=== PATIENT | female | born 1935 | race Caucasian/White ===

== ENCOUNTER → 2017-12-23 | Outpatient (CLI) | payer MEDICARE ==
[~2017-12-23] MED LIST: BETA0.0554 TOPICAL; DIGO0.12 PO; LEVO75TA3 PO; METO50TA PO; RANI150T PO; ROSU1TAB6 PO; TAZT300C PO
== END ==
LOC: OLAB 07:57
PROVIDERS: ATTEND Family Medicine
DX: N03.9 Chronic nephritic syndrome with unspecified morphologic changes (principal)

== ENCOUNTER → 2018-04-05 | Outpatient (CLI) | payer MEDICARE ==
[2018-04-05 14:14] LABS: ALBUMIN 3.5 GM/DL (3.4-5.0); AST (GOT) 19 U/L (15-37); BLOOD UREA NITROGEN 13 MG/DL (7-18); CALCIUM 9.3 MG/DL (8.5-10.1); CHLORIDE 105 MEQ/L (98-107); CREATININE 1.24 MG/DL (0.50-1.00); GLOMERULAR FILTRATION RATE 41 ML/MIN (>89); GLUCOSE,FASTING 152 MG/DL (74-99); SODIUM (NA) 139 MEQ/L (136-145)
[2018-04-05 14:15] LABS: ALT (GPT) 22 U/L (10-53); CHOLESTEROL 122 MG/DL (120-200); TRIGLYCERIDES 152 MG/DL (42-150)
[2018-04-05 14:29] LABS: ALKALINE PHOSPHATASE 87 U/L (45-117); BICARBONATE 25.2 MEQ/L (21.0-32.0); CHOLESTEROL/ HDL RATIO 2.79 RATIO; DIGOXIN 0.8 NG/ML (0.8-2.0); HDL CHOLESTEROL 43.7 MG/DL (40.0-60.0); LDL CHOLESTEROL 48 MG/DL (0-99); TOTAL BILIRUBIN ADULT 0.4 MG/DL (0.2-1.0); TOTAL PROTEIN 7.2 GM/DL (6.4-8.2)
[2018-04-05 17:48] LABS: HEMOGLOBIN A1C 6.3 % (4.3-6.0)
== END ==
LOC: OLAB 10:00
PROVIDERS: ATTEND Family Medicine
DX: I48.91 Unspecified atrial fibrillation (principal); E03.9 Hypothyroidism, unspecified; R73.03 Prediabetes
CPT/HCPCS: 36415; 80053; 80061; 80162; 83036; 84443